=== PATIENT | male | born 1955 | race Caucasian/White ===

== ENCOUNTER 2024-07-26 10:42 | Emergency (ER) | payer MEDICARE, OTHER ==
[~2024-07-26] VITALS: Ht 180.3 cm; Wt 86.0 kg
[~2024-07-26 10:42] MED LIST: AMIODARONE HCL200 MG PO; CELEBREX200 MG PO; COUMADIN2.5 MG PO; MELOXICAM15 MG PO; METOPROLOL SUCC25 MG PO; METOPROLOL TART25 MG PO; NORVASC10 MG PO; OCTREOTIDE SUB-Q; OXYCODONE HCL5 MG PO; PRAVASTATIN SOD10 MG PO; SANDOSTATIN LAR20 M1 IM; SUDOGEST30 MG PO; TRAZODONE HCL100 MG PO; WARFARIN SODIUM4 MG PO; WELLBUTRIN XL300 MG PO
[2024-07-26 10:58] LABS: BASOPHILS 0.5 % (0.2-1.2); EOSINOPHILS 1.2 % (0.8-7.0); HEMATOCRIT 41.4 % (40.1-51.0); HEMOGLOBIN 13.4 g/dL (13.7-17.5); LYMPHOCYTES 24.2 % (21.8-53.1); MCH 28.4 PG (25.7-32.2); MCHC 32.4 g/dL (32.3-36.5); MCV 87.7 fL (79.0-92.2); MONOCYTES 7.9 % (5.3-12.2); PLATELET COUNT 209 K/uL (163-337); RBC 4.72 M/uL (4.63-6.08)
[2024-07-26] MEDS ORDERED: ASPIRIN 325 MG TAB PO ONE (11:00)
[2024-07-26] MEDS ORDERED: SODIUM CHLORIDE 0.9% 500 ML IV PRN (11:15)
[2024-07-26] MEDS ORDERED: METOPROLOL TARTRATE 50 MG TAB PO ONE (11:15)
[2024-07-26] MEDS ORDERED: METOPROLOL TARTRATE 5 MG/5 ML VIAL IV PRN (11:15)
[2024-07-26 11:19] LABS: ALBUMIN 4.6 g/dL (3.4-5.0); ALBUMIN/GLOBULIN RATIO 1.35 (1.1-2.4); ANION GAP 13.8 (7-21); BILIRUBIN, TOTAL 1.1 mg/dL (0.2-1.0); BUN/CREATININE RATIO 14.58 (6.0-28.6); CALCIUM 9.3 mg/dL (8.5-10.1); CREATININE, SERUM 0.96 mg/dL (0.70-1.30); MAGNESIUM 1.9 mg/dL (1.8-2.4); POTASSIUM 3.8 mmol/L (3.5-5.1)
[2024-07-26 14:15] VITALS: BP 147/85
--- NOTE | 2024-07-28 12:55 | EKG ---
[facility] [address] [facility] [place] [address] Signed Atrial fibrillation with rapid ventricular response Right bundle branch block Abnormal ECG No previous ECGs available Confirmed by Thierno Gould MD ([id number]) on 07/28/2024 12:55:35 PM Electronically Signed By: THIERNO GOULD MD 07/28/24 1255 PATIENT NAME: RANDAL BAEZ Electrocardiogram DATE OF : 51 PHYSICIAN: THIERNO GOULD MD REPORT #: [id number] REPORT IS CONFIDENTIAL AND NOT TO BE RELEASED WITHOUT AUTHORIZATION
== END 2024-07-26 14:15 | disposition home or self-care (01) ==
LOC: ED 10:42
PROVIDERS: Emergency Medicine
DX: I48.0 Paroxysmal atrial fibrillation (principal); Z79.899 Other long term (current) drug therapy; Z88.8 Allergy status to other drugs, medicaments and biological substances
CPT/HCPCS: 36415; 71045; 71260; 80053; 83735; 84484; 85025; 85379; 93005; 93010; 99285-25; J7040; Q9967